=== PATIENT | male | born 1950 | race Caucasian/White ===

== ENCOUNTER 2017-02-19 21:08 | Emergency (ER) | payer SELFPAY ==
[~2017-02-19] VITALS: Wt 77.1 kg
[2017-02-20] MEDS ORDERED: METO-448 PO (14:38)
[2017-02-20] MEDS ORDERED: ASPI81TA3 PO (14:40)
[2017-02-20] MEDS ORDERED: ATOR40TA68 PO (14:40)
[2017-02-20] MEDS ORDERED: NAPR-688 PO (15:18)
[2017-02-20] MEDS ORDERED: HYDR-906 PO (15:18)
== END 2017-02-19 23:38 | disposition left against medical advice (07) ==
LOC: E/R 21:08
DX: Z53.21 Procedure and treatment not carried out due to patient leaving prior to being seen by health care provider (principal)

== ENCOUNTER 2017-02-20 11:47 | Emergency (ER) | payer OTHER ==
[~2017-02-20] VITALS: Ht 162.6 cm; Wt 76.0 kg
[2017-02-20 11:49] VITALS: Ht 162.6 cm; Wt 76.0 kg
[2017-02-20] MEDS ORDERED: ONDANSETRON 4 MG INJ IV STA (12:16)
[2017-02-20] MEDS ORDERED: morphine 4 MG/ML VIAL IV STA (12:16)
[2017-02-20] MEDS ORDERED: SOD CHLORIDE 0.9% 1,000 ML IV STA (12:16)
--- NOTE | 2017-02-20 13:13 | RADRPT ---
PROCEDURE: CT ABDOMEN AND PELVIS WITHOUT CONTRAST. CLINICAL INDICATION: Abdominal pain TECHNIQUE: CT scan of the abdomen and pelvis without contrast was performed on a multidetector hig h-resolution CT scanner. The patient was scanned without intravenous contrast. Coronal and sagittal reformatted images were obtained from the axial source images. Images were reviewed on a high-resol [employer] PACS workstation. The total exam CTDI equals 10.2 mGy and the total exam DLP equals 650 mGy-cm . One or more of the following dose reduction techniques were used: Automated exposure control. Adjustment of the mA and/or kV according to patient size. Use of iterative reconstruction technique. DICOM images are available COMPARISON: None FINDINGS: CT abdomen: Bilateral lower lobe atelectasis noted. Heart size is enlarged. Hepatic morphology is within limits. Multiple cysts are noted within the liver. The gallbladder is u nremarkable. No evidence of intrahepatic or extrahepatic biliary dilatation. The spleen and pancreas are within normal limits. Both adrenal glands are within normal limits. Both kidneys are and normal anatomic position. No gross renal/ureteric calculi. No evidence of obstr uction or hydronephrosis. The visualized GI tract demonstrates left colonic diverticulosis. No evidence of bowel obstruction. The appendix is within normal limits. There is mild atherosclerotic calcification of the aorta. There is no significant retroperitoneal ly mphadenopathy. A small fat-containing umbilical hernia is noted. CT pelvis: The bladder is identified. There is a small right posterior bladder wall diverticulum measuring 1.1 cm. Prostate gland is normal size. The rectosigmoid colon demonstrates mild diverticulosis. No signi ficant free fluid. No significant pelvic lymphadenopathy. The visualized osseous structures appears to within normal limits. IMPRESSION: 1. No evidence of acute intra-abdominal/pelvic inflammatory process. No evidence of bowel obstructio n. The appendix is within normal limits. Small hiatal hernia. 2. Left colonic and sigmoid diverticulosis. 3. Multiple hepatic cysts. 4. Atherosclerosis of the aorta. 5. No gross renal/ureteric calculi. No evidence of obstruction or hydronephrosis. 6. Right posterior wall bladder diverticulum measuring 1.1 cm. 7. No free fluid or free air. No gross focal fluid collections. RPTAT: AAPP Pricila White, Physician Date Time Electronically viewed and signed by Pricila White Physician on 02/20/2017 13:13 JL/
[2017-02-20 13:19] LABS: BASOPHILS % 0.4 % (0.0-2.0); EOSINOPHILS # 0.1 10^3/ul (0.0-0.5); HEMATOCRIT 43.2 % (42.0-52.0); HEMOGLOBIN 14.4 g/dl (14.0-18.0); LYMPHOCYTES % 40.9 % (15.0-51.0); MEAN CORPUSCULAR HEMOGLOBIN 31.2 pg (29.0-33.0); MEAN CORPUSCULAR HGB CONC 33.3 g/dl (32.0-37.0); MEAN CORPUSCULAR VOLUME 93.5 fl (82.0-101.0); MONOCYTE # 0.7 10^3/ul (0.3-0.9); MONOCYTES % 14.8 % (0.0-11.0); NEUTROPHIL # 2.1 10^3/ul (1.6-7.5); NEUTROPHILS % 42.7 % (39.0-77.0); PLATELET COUNT 161 10^3/UL (140-415); RED BLOOD COUNT 4.62 10^6/ul (4.70-6.10); RED CELL DISTRIBUTION WIDTH 12.4 % (11.5-14.5); WHITE BLOOD COUNT 4.9 10^3/ul (4.8-10.8)
[2017-02-20 13:28] LABS: ADD UMIC NO; UR ASCORBIC ACID NEGATIVE (NEGATIVE); UR BILIRUBIN (Dip) NEGATIVE (NEGATIVE); UR BLOOD (Dip) NEGATIVE (NEGATIVE); UR CLARITY CLEAR (CLEAR); UR COLOR YELLOW (YELLOW); UR GLUCOSE (Dip) NEGATIVE (NEGATIVE); UR KETONES (Dip) NEGATIVE (NEGATIVE); UR LEUKOCYTE ESTERASE (Dip) NEGATIVE Leu/ul (NEGATIVE); UR NITRITE (Dip) NEGATIVE (NEGATIVE); UR TOTAL PROTEIN (Dip) NEGATIVE (NEGATIVE); UR UROBILINOGEN (Dip) NEGATIVE (NEGATIVE)
[2017-02-20 13:38] LABS: ALANINE AMINOTRANSFERASE 37 IU/L (13-69); ALBUMIN 3.8 g/dl (3.3-4.9); ALBUMIN/GLOBULIN RATIO 1.31; ALKALINE PHOSPHATASE 54 IU/L (42-121); ANION GAP 13 (8-16); ASPARTATE AMINO TRANSFERASE 22 IU/L (15-46); BILIRUBIN,INDIRECT 0.3 mg/dl (0-1.1); BILIRUBIN,TOTAL 0.3 mg/dl (0.2-1.3); BLOOD UREA NITROGEN 14 mg/dl (7-20); CARBON DIOXIDE 31 mmol/L (21-31); CHLORIDE 103 mmol/L (97-110); GLUCOSE 77 mg/dl (70-220); POTASSIUM 4.1 mmol/L (3.5-5.1); SODIUM 143 mmol/L (135-144); TOTAL PROTEIN 6.7 g/dl (6.1-8.1)
[2017-02-20 13:57] LABS: TROPONIN-I < 0.012 ng/ml (0.00-0.12)
[2017-02-20] MEDS ORDERED: METO-448 PO (14:38)
[2017-02-20] MEDS ORDERED: ASPI81TA3 PO (14:40)
[2017-02-20] MEDS ORDERED: ATOR40TA68 PO (14:40)
[2017-02-20] MEDS ORDERED: NAPR-688 PO (15:18)
[2017-02-20] MEDS ORDERED: HYDR-906 PO (15:18)
--- NOTE | 2017-02-20 15:24 | ERD ---
ER Documentation Chief Complaint Chief Complaint pt bib family with c/o abd pain since friday HPI 66-year-old male presents for abdominal pain for the last 5 days. Pain is in a specific area of his abdomen just below the umbilicus into the left about the size of the face. The pain comes and goes and is sharp. He has no associated symptoms. No nausea or vomiting no fever chills. As completely normal bowel movements. He is a never had abdominal surgery. ROS All systems reviewed and are negative except as per history of present illness. Medications Home Meds Active Scripts Naproxen* (Naproxen*) 500 Mg Tablet, 500 MG PO BID Y for PAIN, #20 TAB Prov:ANI CORTEZ DO 02/20/17 Hydrocodone/Acetaminophen ([place] 5-325 Tablet) 1 Each Tablet, 1 EACH PO Q6, #14 TAB Prov:ANI CORTEZ DO 02/20/17 Reported Medications Aspirin* (Aspirin* Chew) 81 Mg Tab.chew, 81 MG PO DAILY, TAB.CHEW 02/20/17 Atorvastatin* (Atorvastatin*) 40 Mg Tablet, 40 MG PO QHS, #30 TAB 02/20/17 Metoprolol Tartrate* (Lopressor*) 25 Mg Tab, 12.5 MG PO DAILY, #60 TAB 02/20/17 Allergies Allergies: Coded Allergies: No Known Allergy (Unverified , 06/13/14) PMhx/Soc Anesthesia Reaction: No Hx Neurological Disorder: No Hx Respiratory Disorders: No Hx Cardiac Disorders: Yes (Arrythrmia, CAD, cardiac stents x3) Hx Psychiatric Problems: No Hx Miscellaneous Medical Probl: Yes (High Cholesterol) Hx Alcohol Use: No Hx Substance Use: No Hx Tobacco Use: No Smoking Status: Never smoker Physical Exam Vitals Vital Signs Date Time Temp Pulse Resp B/P Pulse Ox O2 Delivery O2 Flow Rate FiO2 02/20/17 14:06 70 18 114/74 98 Room Air 02/20/17 13:25 73 16 138/76 98 Room Air 02/20/17 11:49 98.8 80 18 137/79 98 Physical Exam Const: [] Mild distress Head: Atraumatic Eyes: Normal Conjunctiva ENT: Normal External Ears, Nose and Mouth. Neck: Full range of motion..~ No meningismus. Resp: Clear to auscultation bilaterally Cardio: Regular rate and rhythm, no murmurs Abd: Soft, mild abdominal tenderness just below left to the patient's umbilicus, no guarding or rebound, in fact the patient is able to push on the area himself and indented significantly is to show me the location of the pain without any apparent distress, bowel sounds normal, non distended. Masses palpable Skin: No petechiae or rashes Back: No midline or flank tenderness Ext: No cyanosis, or edema Neur: Awake and alert oriented 3. Psych: Normal Mood and Affect Result Diagram: 02/20/17 1230 02/20/17 1230 Results 24 hrs Laboratory Tests Test 02/20/17 12:30 02/20/17 13:00 White Blood Count 4.910^3/ul Red Blood Count 4.6210^6/ul Hemoglobin 14.4g/dl Hematocrit 43.2% Mean Corpuscular Volume 93.5fl Mean Corpuscular Hemoglobin 31.2pg Mean Corpuscular Hemoglobin Concent 33.3g/dl Red Cell Distribution Width 12.4% Platelet Count 00545^3/UL Mean Platelet Volume 11.0fl Neutrophils % 42.7% Lymphocytes % 40.9% Monocytes % 14.8% Eosinophils % 1.0% Basophils % 0.4% Nucleated Red Blood Cells % 0.0/100WBC Neutrophils # 2.110^3/ul Lymphocytes # 2.010^3/ul Monocytes # 0.710^3/ul Eosinophils # 0.110^3/ul Basophils # 0.010^3/ul Nucleated Red Blood Cells # 0.010^3/ul Sodium Level 143mmol/L Potassium Level 4.1mmol/L Chloride Level 103mmol/L Carbon Dioxide Level 31mmol/L Anion Gap 13 Blood Urea Nitrogen 14mg/dl Creatinine 0.80mg/dl Glucose Level 77mg/dl Lactic Acid Level 1.8mmol/L Calcium Level 9.0mg/dl Total Bilirubin 0.3mg/dl Direct Bilirubin 0.00mg/dl Indirect Bilirubin 0.3mg/dl Aspartate Amino Transf (AST/SGOT) 22IU/L Alanine Aminotransferase (ALT/SGPT) 37IU/L Alkaline Phosphatase 54IU/L Troponin I < 0.012ng/ml Total Protein 6.7g/dl Albumin 3.8g/dl Globulin 2.90g/dl Albumin/Globulin Ratio 1.31 Lipase 59U/L Urine Color YELLOW Urine Clarity CLEAR Urine pH 7.0 Urine Specific [place] 1.020 Urine Ketones NEGATIVEmg/dL Urine Nitrite NEGATIVEmg/dL Urine Bilirubin NEGATIVEmg/dL Urine Urobilinogen NEGATIVEmg/dL Urine Leukocyte Esterase NEGATIVELeu/ul Urine Hemoglobin NEGATIVEmg/dL Urine Glucose NEGATIVEmg/dL Urine Total Protein NEGATIVEmg/dl Current Medications Medications (Trade) Dose Ordered Sig/Katie Route PRN Reason Start Time Stop Time Status Last Admin Dose Admin Sodium Chloride (NS) 1,000 ml @ 1,000 mls/hr Q1H STAT IV 02/20/17 12:16 02/20/17 13:15 DC 02/20/17 13:14 Morphine Sulfate (morphine) 4 mg ONCE STAT IV 02/20/17 12:16 02/20/17 12:21 DC 02/20/17 13:14 Ondansetron HCl (Zofran Inj) 4 mg ONCE STAT IV 02/20/17 12:16 02/20/17 12:21 DC 02/20/17 13:14 Procedures/MDM Abdominal pain for a few days without any apparent cause. Diverticulosis is a possibility. The patient was given morphine as well as normal saline. Pain was resolved completely and the patient is asymptomatic in the emergency room. He has normal vital signs and no signs of infection. Negative troponin. I printed all of his laboratories to take with him to his primary care physician who suggested he come here. Discharging with a few [place] as well as naproxen for the pain. Possible further GI workup per PCP CT abdomen pelvis interpretation: I see no acute process, I see no obstruction, no perforation or free air, no abnormal fat stranding, no fractures. Departure Diagnosis: Primary Impression: Abdominal pain Condition: Stable Patient Instructions: Abdominal Pain Additional Instructions: Call your primary care doctor TOMORROW for an appointment during the next 2-3 days.See the doctor sooner or return here if your condition worsens before your appointment time. ANI OCRTEZ DO Feb 20, 2017 15:24
[2017-02-20 15:28] VITALS: BP 109/75; PULSE 70; RESP 20
== END 2017-02-20 15:30 | disposition home or self-care (01) ==
LOC: E/R 11:47
DX: R10.33 Periumbilical pain (principal); I25.10 Atherosclerotic heart disease of native coronary artery without angina pectoris; Z98.61 Coronary angioplasty status; Z79.82 Long term (current) use of aspirin
CPT/HCPCS: 36415; 74176; 80053; 81003; 83605; 83690; 84484; 85025; 96374; 96375; 99285; J2270; J2405; J7030

== ENCOUNTER 2017-04-24 09:08 | Emergency (ER) | END 2017-04-24 10:23 | disposition home or self-care (01) ==

== ENCOUNTER 2017-07-02 02:21 | Observation (INO) | END 2017-07-02 15:49 | disposition home or self-care (01) ==

== ENCOUNTER 2018-12-28 10:21 | Emergency (ER) | payer OTHER ==
[~2018-12-28] VITALS: Ht 162.6 cm; Wt 71.4 kg
[~2018-12-28 10:21] MED LIST: ASPI-903 PO; ATOR40TA68 PO; HYDR-4011 PO; LORA10CA PO; METO-448 PO; NAPR-985 PO
[2018-12-28 10:35] VITALS: BP 129/70; PULSE 77; RESP 17; Ht 162.6 cm; Wt 71.4 kg
== END 2018-12-28 12:45 | disposition left against medical advice (07) ==
LOC: E/R 10:21
DX: Z53.21 Procedure and treatment not carried out due to patient leaving prior to being seen by health care provider (principal)

== ENCOUNTER 2019-02-08 11:58 | Emergency (ER) | payer OTHER ==
[~2019-02-08] VITALS: Wt 71.0 kg
[2019-02-08 12:37] VITALS: BP 117/70; PULSE 70; RESP 20
== END 2019-02-08 15:52 | disposition home or self-care (01) ==
LOC: FTE 11:58
DX: R10.32 Left lower quadrant pain (principal); Z79.82 Long term (current) use of aspirin; Z98.61 Coronary angioplasty status
CPT/HCPCS: 99282